=== PATIENT | male | born 1995 | race African-American/Black ===

== ENCOUNTER 2019-02-07 14:00 | Emergency (ER) | payer OTHER ==
[2019-02-07 14:40] LABS: #Eosinphils 0.1 thou/uL (0.0-0.7); #Lymphocytes 1.7 thou/uL (1.20-3.40); #Monocytes 0.4 thou/uL (0.11-0.59); #Neutrophils 1.8 thou/uL (1.40-6.50); %Basophils 1.2 % (0.0-1.0); %Eosinophils 1.6 % (0.0-10.0); %Lymphocytes 42.7 % (21.0-51.0); %Monocytes 10.6 % (0.0-10.0); %Neutrophils 43.9 % (42.0-75.0); Hemoglobin 15.3 g/dL (14.0-18.0); Mean Corpuscular Hemoglobin 32.2 pg (27.0-31.0); Mean Corpuscular Volume 94.7 fL (78.0-98.0); Mean Platelet Volume 8.6 fL (7.4-10.4); Platelet Count 202 thou/uL (130-400); Red Blood Cell (RBC) Count 4.76 mill/uL (4.70-6.10)
--- NOTE | 2019-02-07 14:51 | RAD ---
Portable chest: HISTORY: Chest pain COMPARISON: none FINDINGS: Lung abrams are clear. Heart and mediastinum appear unremarkable. Vascularity is normal. Visualized osseous structures unremarkable. IMPRESSION: No acute finding
[2019-02-07 15:00] LABS: ALT (SGPT) 42 U/L (8-55); AST (SGOT) 30 U/L (5-34); Albumin 4.7 g/dL (3.5-5.0); Alkaline Phosphatase 78 U/L (40-150); Anion Gap 11 mmol/L (10-20); Bilirubin, Total 0.4 mg/dL (0.2-1.2); Calc. Creatinine Clearance 0 mL/min (70-130); Calcium 10.3 mg/dL (7.8-10.44); Carbon Dioxide 26 mmol/L (22-29); Chloride 104 mmol/L (98-107); Estimated GFR-MDRD 76; Globulin 3.3 g/dL (2.4-3.5); Glucose 92 mg/dL (70-105); Potassium 4.2 mmol/L (3.5-5.1); Sodium 137 mmol/L (136-145)
[2019-02-07 15:02] LABS: BUN (Urea Nitrogen) 13 mg/dL (8.9-20.6)
== END 2019-02-07 15:43 | disposition home or self-care (01) ==
LOC: ERS 14:00
DX: R07.9 Chest pain, unspecified (principal); D57.1 Sickle-cell disease without crisis
CPT/HCPCS: 71045; 80053; 84484; 85025; 93005